=== PATIENT | male | born 1995 | race Caucasian/White ===

== ENCOUNTER 2017-12-27 12:07 | Emergency (ER) | payer SELFPAY ==
[2017-12-27] MEDS: IBUPROFEN 600 MG TABLET. PO (12:59)
== END 2017-12-27 15:01 | disposition home or self-care (01) ==
LOC: ER 12:07
DX: S52.121A Displaced fracture of head of right radius, initial encounter for closed fracture (principal); V00.131A Fall from skateboard, initial encounter; Y93.51 Activity, roller skating (inline) and skateboarding; Y92.89 Other specified places as the place of occurrence of the external cause; Y99.8 Other external cause status
CPT/HCPCS: 29105; 73080; 99284